=== PATIENT | male | born 2000 | race Caucasian/White ===

== ENCOUNTER 2020-01-28 06:46 | Outpatient (NON) | payer OTHER, SELFPAY ==
[2020-01-28 18:59] LABS: SARS-CoV-2 RNA PCR Negative
== END 2020-01-28 06:47 ==
PROVIDERS: PCP Pediatrics; Visit Provider Pediatrics
DX: Z20.828 Contact with and (suspected) exposure to other viral communicable diseases (principal)
CPT/HCPCS: 87635; C9803; U0003

== ENCOUNTER 2021-04-19 15:21 | Emergency (ER) | payer OTHER, SELFPAY | END 2021-04-19 17:00 | disposition left against medical advice (07) | PROVIDERS: Emergency Provider Nurse Practitioner Family | DX: Z53.21 Procedure and treatment not carried out due to patient leaving prior to being seen by health care provider (principal) | CPT/HCPCS: 99199 ==